=== PATIENT | male | born 1955 | race Two or more races ===

== ENCOUNTER → 2016-12-20 | Outpatient (CLI) | payer OTHER ==
[~2016-12-20] MED LIST: AMLO2.5T78 PO
--- NOTE | 2016-12-21 06:50 | RADRPT ---
PROCEDURE: Video-fluoroscopy swallowing study. CLINICAL INDICATION: Dysphagia. TECHNIQUE: Fluoroscopic guided video swallowing study was done in conjunction with the speech ther apist. The study was confined to the oral, pharyngeal, and cervical phases of the swallowing mechani sm. 2.4 minutes of fluoroscopy time was used. COMPARISON: No prior study is available for comparison. FINDINGS: There is no evidence of aspiration during the exam. There has been prior cervical spine surgery with anterior fusion at C4-5 and C5-6. IMPRESSION: 1. Normal study. No aspiration. 2. Please refer to the speech therapist's recommendations for future feedings. RPTAT: QQ .Marques Culver MD, MD Date Time Electronically viewed and signed by .Marques Culver MD, MD on 12/20/2016 17:47 .R/
== END | disposition home or self-care (01) ==
LOC: RAD 12:19
PROVIDERS: ATTEND Otolaryngology
DX: R13.10 Dysphagia, unspecified (principal)
CPT/HCPCS: 74230; 92611

== ENCOUNTER 2017-01-22 11:47 | Day surgery (SDC) | payer OTHER ==
[~2017-01-22] VITALS: Ht 170.2 cm; Wt 87.3 kg
[2017-01-22 12:33] VITALS: Ht 170.2 cm; Wt 87.3 kg
[2017-01-22 13:06] VITALS: BP 138/77; PULSE 75; RESP 16
[2017-01-22] MEDS ORDERED: PROPOFOL 20 ML ONE ×2 (13:36→14:37)
[2017-01-22 15:10] VITALS: BP 139/87; PULSE 76; RESP 18
--- NOTE | 2017-01-22 16:52 | GILP ---
DATE OF PROCEDURE: 01/22/2017 NAME OF PROCEDURE: Colonoscopy. SURGEON: Kristy Georges MD. HISTORY AND INDICATIONS: The patient here for colorectal cancer screening. PREMEDICATION: Monitored anesthesia care by anesthesiologist. INSTRUMENT USED: Olympus colonoscope. PREPARATION: Suboptimal in the right side of the colon, extensive lavage was applied. TECHNIQUE: After informed consent, with the patient/relatives understanding the procedure, its indic ations potential risks and complications, including but not limited to: allergic reaction, bleeding, perforation, infection, missed lesions and after all pertinent questions were answered to the patie nt's satisfaction, the patient/relatives signed the witnessed informed consent. Following this, premedication was administered slowly IV push by under careful cardiovascular and re spiratory monitoring with pulse oximetry, automatic blood pressure and school lunch monitor. Once the sedativ e effect was achieved, the patient was placed in the left lateral decubitus position, digital rectal examination was performed. The colonoscope was then introduced and advanced under visual control th roughout all segments of the colon including: the rectum, sigmoid, descending colon, splenic flexure , transverse colon, hepatic flexure, ascending colon and finally reaching the cecum which was clearl y identified by transillumination, finger indentation and the ileocecal valve. Careful examination o f the mucosa of the lower gastrointestinal tract both on insertion as well as withdrawal of the inst rument disclosed the following findings: Rectal Examination: No evidence of perirectal disease, no masses. Colonic Mucosa: The colonic mucosa is unremarkable. Extensive lavage was applied. Even with this, probably 20 to 25% of the mucosa could not be visualized, rendering this examination suboptimal. The ileocecal valve was clearly identified and appears unremarkable. The instrument was withdrawn, re-examining the mucosa in detail. No additional abnormalities were noted with the exception of mod erate sized internal hemorrhoids. IMPRESSION: 1. Suboptimal examination with no gross lesions. 2. Moderate sized internal hemorrhoids. PLAN: The patient will be followed up as an outpatient. Annual Hemoccult stool testing is recommen ded. Repeat colonoscopy in 1 to 3 years is recommended with a 2-day preparation with emphasis in co mpliance. Dictated By: KRISTY GEORGES MS/NTS Conf#: [id number] DID#: [id number] CC: KRISTY GEORGES;*EndCC*
== END 2017-01-22 15:56 | disposition home or self-care (01) ==
LOC: GIL 11:47
PROVIDERS: ATTEND Internal Medicine Gastroenterology
DX: Z12.11 Encounter for screening for malignant neoplasm of colon (principal); K64.8 Other hemorrhoids; I10 Essential (primary) hypertension; F41.8 Other specified anxiety disorders
CPT/HCPCS: 45378; Z7610

== ENCOUNTER 2018-10-07 09:42 | Day surgery (SDC) | END 2018-10-07 11:42 | disposition home or self-care (01) ==